=== PATIENT | male | born 1990 | race Caucasian/White ===

== ENCOUNTER 2021-07-23 14:22 | Emergency (ER) | payer MEDICAID ==
[~2021-07-23] VITALS: Ht 167.6 cm; Wt 73.0 kg
[2021-07-23] MEDS ORDERED: IBUPROFEN 600MG TABLET PO ONE (16:30)
[2021-07-23] MEDS ORDERED: ACETAMINOPHEN 325MG TABLET PO ONE (16:30)
[2021-07-23 16:37] VITALS: BP 148/79
[2021-07-23] MEDS ORDERED: NAPR-1176 MT (17:35)
== END 2021-07-23 18:08 | disposition left against medical advice (07) ==
LOC: ER 14:22
DX: M25.572 Pain in left ankle and joints of left foot (principal); M79.672 Pain in left foot
CPT/HCPCS: 73610; 73630; 99284